=== PATIENT | male | born 1945 | race Caucasian/White ===

== ENCOUNTER 2017-10-21 21:27 | Emergency (ER) | payer MEDICARE ==
--- NOTE | 2017-10-21 22:55 | ER Document Report ---
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 history of [place], congestive heart failure is complaining of numbness and weakness that lasted 10- 15 minutes at 8:30 PM tonight. The family member with him states that they are concerned that the lower left arm is a different color (red and cooler) than the right one. No hx PE or DVT TRAVEL OUTSIDE OF THE [place] IN LAST 30 DAYS: No - Related Data Allergies/Adverse Reactions: No Known Allergies Allergy (Unverified 10/21/17 21:48) Past Medical History - General Information source: Patient, Relative - daughter and intensive care ambulance paramedic - Social History Smoking Status: Current Every Day Smoker Frequency of alcohol use: None Drug Abuse: None Lives with: Family - daughter who is caregiver Family History: Reviewed & Not Pertinent - Past Medical History Cardiac Medical History: Reports: Hx Congestive Heart Failure, Hx Coronary Artery Disease, Hx Heart Attack, Hx Hypercholesterolemia Endocrine Medical History: Reports: Hx Diabetes Mellitus Type 2 Past Surgical History: Reports: Other - cyst removal Review of Systems - Review of Systems Constitutional: No symptoms reported EENT: No symptoms reported Cardiovascular: No symptoms reported Respiratory: No symptoms reported Gastrointestinal: No symptoms reported Genitourinary: No symptoms reported Male Genitourinary: No symptoms reported Musculoskeletal: See HPI Skin: No symptoms reported Hematologic/Lymphatic: No symptoms reported Neurological/Psychological: No symptoms reported Physical Exam - Vital signs Vitals: Temp Pulse Resp BP Pulse Ox 98.4 F 66 16 149/70 H 97 10/21/17 21:43 10/21/17 21:43 10/21/17 21:43 10/21/17 21:43 10/21/17 21:43 Interpretation: Hypertensive - mild - General General appearance: Alert Notes: chronically ill , tar stains left fingernails from smoking - HEENT Head: Normocephalic, Atraumatic Eyes: Normal Pupils: PERRL Tympanic membrane: Normal Pharynx: Erythema - mild Neck: Supple - Respiratory Respiratory status: No respiratory distress Chest status: Nontender Breath sounds: Normal Chest palpation: Normal - Cardiovascular Rhythm: Regular Heart sounds: Normal auscultation Murmur: No - Abdominal Inspection: Normal Distension: No distension Bowel sounds: Normal Tenderness: Nontender Organomegaly: No organomegaly - Back Back: Normal, Nontender - Extremities General upper extremity: Normal inspection, Nontender, Normal color, Normal ROM , Normal temperature General lower extremity: Normal inspection, Nontender, Normal color, Normal ROM , Normal temperature, Normal weight bearing. No: Sree's sign Forearm: Nontender, Other - red color, cooler left lower forearm & hand compared to the right forearm. 2+ radial and ulnar pulse right wrist, non palpable pulses left wrist, but heard with the doppler. sluggish cap refill both hands, no worse on the left. Wrist: Other - see above Hip: Other - see above - Neurological Neuro grossly intact: Yes Cognition: Normal Orientation: AAOx4 Alber Coma Scale Eye Opening: Spontaneous Alber Coma Scale Verbal: Oriented [place] Coma Scale Motor: Obeys Commands Alber Coma Scale Total: 15 Speech: Normal Motor strength normal: LUE, RUE, LLE, RLE Sensory: Normal - Psychological Associated symptoms: Normal affect, Normal mood - Skin Skin Temperature: Warm Skin Moisture: Dry Skin Color: Normal Skin irregularity: negative: Rash Course - Re-evaluation Re-evalutation: 10/21/17 23:[address] tran, get coags, comp, cbc, CTA left upper extremity 10/22/17 00:[address] negative. mild renal insufficiency on the labs. creatinine 1.43, bun 24 , call or contact centre operator says it is OK to get the CTA left upper extremity 10/22/17 00:[address] 10/22/17 01:55 moderate to severe diffuse narrowing of the left mid-distal brachium artery secondary to atherosclerosis. Dr. tran wants him transferred. [facility] called, dr. guy is the vascular surgeon animal control specialist. 10/22/17 02:00 10/22/17 02:12 Discussed at length with his daughter and the patient the need for vascular surgeon and need for transport tonight from the emergency room he understands and accepts the risks of. Losing his left lower arm due to lack of arterial blood flow. His daughter is adamant as well and they both want to go home. He did sign the AMA form and I will give him all his information, lab work, CTA results and the interpretation. His daughter states that he will seek help from a vascular surgeon tomorrow. 10/22/17 02:20 [facility] transfer center returned call with PA from the heart center there, but I did not speak with him because the pt is leaving AMA shortly, despite my encouraging pt to be seen tonight by vascular surgeon. - Vital Signs Vital signs: Temp Pulse Resp BP Pulse Ox 98.4 F 66 16 149/70 H 97 10/21/17 21:43 10/21/17 21:43 10/21/17 21:43 10/21/17 21:43 10/21/17 21:43 - Laboratory Result Diagrams: 10/21/17 23:39 10/21/17 23:39 Laboratory results interpreted by me: 10/21/17 10/21/17 23:39 23:39 MCH 33.7 H RDW 14.2 H BUN 24 H Creatinine 1.43 H Est GFR ( Amer) 59 L Est GFR (Non-Af Amer) 48 L Glucose 175 H Discharge - Discharge Clinical Impression: brachial artery atherosclerotic stenosis, Renal insufficiency Diabetes Qualifiers: Diabetes mellitus type: type 2 Diabetes mellitus complication status: with unspecified complications Diabetes mellitus electrical systems drafter insulin use: without custodial use Qualified Code(s): E11.8 - Type 2 diabetes mellitus with unspecified complications Condition: Fair Disposition: AGAINST MEDICAL ADVICE Additional Instructions: seek help from vascular surgeon tonight if you change your mind, or tomorrow all the labs, CTA results and films given to you return to er if you change your mind about transfer. Referrals: BIRGIT SUNG MD [Primary Care Provider] - Follow up as needed
[2017-10-21 23:50] LABS: ABSOLUTE EOSINOPHILS # (AUTO) 0.5 10^3/uL (0.0-0.6); ABSOLUTE LYMPHOCYTES (AUTO) 1.5 10^3/uL (0.5-4.7); ABSOLUTE MONOCYTES (AUTO) 0.5 10^3/uL (0.1-1.4); ABSOLUTE NEUT (AUTO) 6.5 10^3/uL (1.7-8.2); BASOPHILS % (AUTO) 0.5 % (0-2); EOSINOPHILS % (AUTO) 5.3 % (0-6); HEMATOCRIT 44.4 % (37.9-51.0); HEMOGLOBIN 15.7 g/dL (13.5-17.0); HGB HCT DIFFERENCE 2.7; LYMPHOCYTES % (AUTO) 16.3 % (13-45); MEAN CORPUSCULAR HEMOGLOBIN 33.7 pg (27.0-33.4); MEAN CORPUSCULAR HGB CONC 35.4 g/dL (32.0-36.0); MEAN CORPUSCULAR VOLUME 95 fl (80-97); MONOCYTES % (AUTO) 5.4 % (3-13); RED BLOOD COUNT 4.66 10^6/uL (4.35-5.55); RED CELL DISTRIBUTION WIDTH 14.2 % (11.5-14.0); SEGMENTED NEUTROPHILS % (AUTO) 72.5 % (42-78)
[2017-10-21 23:57] LABS: PROTHROMBIN TIME 13.1 SEC (11.4-15.4)
[2017-10-21 23:58] LABS: PARTIAL THROMBOPLASTIN TIME 28.6 SEC (23.5-35.8)
--- NOTE | 2017-10-22 | RADIOLOGY REPORT (SQ) ---
EXAM DESCRIPTION: CT HEAD WITHOUT COMPLETED DATE/TIME: 10/21/2017 11:10 pm REASON FOR STUDY: headache COMPARISON: None. TECHNIQUE: Axial images acquired through the brain without intravenous contrast. Images reviewed wi th bone, brain and subdural windows. Images stored on PACS. All CT scanners at this facility use dose modulation, iterative reconstruction, and/or weight based d osing when appropriate to reduce radiation dose to as low as reasonably achievable (ALARA). [facility]: Dose Right [facility]: CareDose [facility]: Dose Right [facility]: Teradose 4D [facility]: Smart [employer] RADIATION DOSE: Up-to-date CT equipment and radiation dose reduction techniques were employed. CTDIv ol: 49.0 mGy. DLP: 783 mGy-cm. mGy. LIMITATIONS: None. FINDINGS: VENTRICLES: Normal size and contour. CEREBRUM: No masses. No hemorrhage. No midline shift. No evidence for acute infarction. Mild micro angiopathy. Mild cerebral volume loss. CEREBELLUM: No masses. No hemorrhage. No alteration of density. No evidence for acute infarction. EXTRAAXIAL SPACES: No fluid collections. No masses. Atherosclerosis. ORBITS AND GLOBE: Left ocular prosthesis. CALVARIUM: No fracture. PARANASAL SINUSES: No fluid or mucosal thickening. SOFT TISSUES: 1.5 cm likely epidermal right post auricular cyst. OTHER: No other significant finding. IMPRESSION: No acute findings. EVIDENCE OF ACUTE STROKE: NO. COMMENT: Quality ID # [id number]: Final reports with documentation of one or more dose reduction techniques (e.g., Automated exposure control, adjustment of the mA and/or kV according to patient size, use of iterative reconstruction technique) TECHNICAL DOCUMENTATION: JOB ID: [id number] [employer]- All Rights Reserved
[2017-10-22 00:10] LABS: ALANINE AMINOTRANSFERASE 42 U/L (21-72); ALBUMIN 4.5 g/dL (3.5-5.0); ALKALINE PHOSPHATASE 76 U/L (38-126); ANION GAP 13 (5-19); ASPARTATE AMINO TRANSFERASE 22 U/L (17-59); BILIRUBIN,DIRECT 0.4 mg/dL (0.0-0.4); BILIRUBIN,TOTAL 0.8 mg/dL (0.2-1.3); BLOOD UREA NITROGEN 24 mg/dL (7-20); CALCIUM 9.8 mg/dL (8.4-10.2); CARBON DIOXIDE 26 mmol/L (22-30); CHLORIDE 101 mmol/L (98-107); CREATININE RESULT 1.43 mg/dL (0.52-1.25); GLUCOSE 175 mg/dL (75-110); POTASSIUM 4.8 mmol/L (3.6-5.0); SODIUM 140.1 mmol/L (137-145)
--- NOTE | 2017-10-22 01:32 | RADIOLOGY REPORT (SQ) ---
EXAM DESCRIPTION: CTA LEFT UPPER EXTREMITY COMPLETED DATE/TIME: 10/22/2017 1:09 am REASON FOR STUDY: possible vascular occlusion left upper extremity COMPARISON: None. TECHNIQUE: Creatinine 1.4. Axial imaging performed through the left upper extremity with reformatte d coronal and sagittal imaging windowed for bone and soft tissues. Images saved to PACS. 3D IMAGING: Were 3D images as MIP, SSD, or volume rendering performed at the work station? Yes. All CT scanners at this facility use dose modulation, iterative reconstruction, and/or weight based d osing when appropriate to reduce radiation dose to as low as reasonably achievable (ALARA). [facility]: Dose Right [facility]: CareDose [facility]: Dose Right [facility]: Teradose 4D [facility]: [employer] LIMITATIONS: None. RADIATION DOSE: Up-to-date CT equipment and radiation dose reduction techniques were employed. CTDIv ol: 18.2 - 18.8 mGy. DLP: 1504 mGy-cm. mGy. FINDINGS: SOFT TISSUES: No obvious swelling or foreign body. BONES: No acute fracture. No dislocation. [id number] osteoarthritis and mild chondrocalcinosi s of the left glenohumeral joint. MINERALIZATION: Normal. OTHER: Moderate coronary arterial calcification. Atherosclerosis. Moderate to severe diffuse narrow ing of the mid -distal brachial artery of the left upper extremity. Patent left subclavian and left axillary arteries. 1.8 cm left adrenal adenoma. IMPRESSION: 1. No acute findings. Moderate to severe diffuse narrowing of the left mid-distal brac hium artery appears secondary to atherosclerosis. 2. A 1.8 cm left adrenal adenoma. TECHNICAL DOCUMENTATION: JOB ID: [id number] Quality ID # [id number]: Final reports with documentation of one or more dose reduction techniques (e.g., Au tomated exposure control, adjustment of the mA and/or kV according to patient size, use of iterative reconstruction technique) 2010 [employer]- All Rights Reserved
[2017-10-22 02:17] VITALS: BP 178/87
== END 2017-10-22 02:25 | disposition left against medical advice (07) ==
LOC: ER 21:27
DX: I77.1 Stricture of artery (principal); I70.208 Unspecified atherosclerosis of native arteries of extremities, other extremity; N28.9 Disorder of kidney and ureter, unspecified; E11.8 Type 2 diabetes mellitus with unspecified complications; M79.642 Pain in left hand; R20.0 Anesthesia of skin; I25.2 Old myocardial infarction; I50.9 Heart failure, unspecified; R53.1 Weakness; M79.602 Pain in left arm; F17.200 Nicotine dependence, unspecified, uncomplicated
CPT/HCPCS: 36415; 70450; 80053; 85025; 85610; 85730; 99284